=== PATIENT | female | born 1985 | race Caucasian/White ===

== ENCOUNTER 2017-03-22 22:28 | Inpatient (IN) | payer OTHER ==
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
--- NOTE | ~2017-03-22 | DS ---
Unit #: [id number] #: [id number] Patient: ESVIN VOGT [id number] [facility] [address] [place] [address] [id number] I MR#: [id number] NAME: ESVIN VOGT. ROOM: P130 Age: 31 Sex: F Admission Date: 03/23/2017 : 1985 Discharge Date: 03/24/2017 Attending Physician: Luis E Abraham M.D. Primary Care Physician: Adelaide Higgins M.D. DISCHARGE SUMMARY REASON FOR ADMISSION Esvin is a 31-year-old woman, who had recently discharged from [facility] and has been living in [place], [place]. Her boyfriend was sent to custodial and she became increasingly hopeless with a plan to overdose on heroin. She is readmitted for stabilization. DIAGNOSTIC STUDIES Please see hospital chart. HOSPITAL COURSE Esvin was readmitted and placed on the opiate detox protocol and Prozac 20 mg daily for depression. She enrolled in psychotherapy groups and activities but had minimal detox symptomatology. The following day she was able to contract for safety and was release in good condition. DISCHARGE DIAGNOSES Crete I Major depression. Opiate dependence. Crete II No diagnosis. Crete III Hepatitis C. Crete IV Crete V INSTRUCTIONS TO PATIENT The patient will follow up with chemical dependence programming through our adult evening IOP. DISCHARGE MEDICATIONS 1. Prozac 20 mg daily for depression 2. Ortho Tri-Clen daily for control CONDITION AT DISCHARGE Improved. PROGNOSIS Good. DIET AND ACTIVITY Ad ruby. Unit #: [id number] #: [id number] Patient: ESVIN VOGT Dictated by... Ever Stark/kiersten TD: 05/12/2017 05:14 JOB #: [id number] DISCHARGE SUMMARY Page 1 of 1 X Luis E Abraham MD X DISCHARGE SUMMARY
--- NOTE | ~2017-03-22 | HP ---
Unit #: [id number] #: [id number] Patient: ESVIN VOGT [id number] [place] [address] [id number] I MR#: [id number] NAME: ESVIN VOGT. ROOM: P130 Age: 31 Sex: F Admission Date: 03/23/2017 : 1985 Attending Physician: Luis E Abraham M.D. Admitting Physician: Luis E Abraham M.D. Primary Care Physician: Adelaide Higgins M.D. HISTORY AND PHYSICAL HISTORY OF PRESENT ILLNESS Esvin is a 31 year old admitted to [address] [place] [address] because of her continued drug use which includes IV heroin. PAST MEDICAL HISTORY 1. Long history of illicit substance abuse to include IV heroin. 2. Hepatitis C. 3. History of MRSA. PAST SURGICAL HISTORY Nothing reported. ALLERGIES Ceclor, erythromycin. SOCIAL HISTORY She does not smoke. Drinks alcohol frequently. Has a long history of illicit substance abuse to include IV heroin. FAMILY HISTORY Medically noncontributory. REVIEW OF SYSTEMS CONSTITUTIONAL: No fever or chills. HEENT: Denies any sore throat, ear pain or runny nose. CARDIOVASCULAR: Denies chest pain, irregular heart rhythm or palpitations. CHEST: Denies shortness of breath or cough. No hemoptysis. GASTROINTESTINAL: Denies nausea, vomiting, diarrhea or chronic constipation. ENDOCRINE: Denies history of increased thirst or urination. No recent significant weight loss or gain. GENITOURINARY: Denies dysuria, frequency, or hematuria. SKIN: Denies any rashes. HEMATOLOGIC: Denies history of increased bleeding or bruising. MUSCULOSKELETAL: Denies any hot, swollen joints. No generalized muscle pain. NEUROLOGIC: Denies problems with vision or speech. No frequent, severe headaches. No numbness, tingling or weakness in any extremities. Denies loss of bladder or bowel control. CURRENT MEDICATIONS 1. Detox protocol. 2. Prozac 20 mg q. day. Unit #: [id number] #: [id number] Patient: ESVIN VOGT 3. Nicotine patch 14 mg q. day. 4. control pills q. day. PHYSICAL EXAMINATION GENERAL: Alert, well nourished. No apparent distress. VITAL SIGNS: Blood pressure 116/58, heart rate 74, respirations 16, and temperature 98.6. WEIGHT: 159. HEIGHT: 5 feet 7 inches. SKIN: Warm and dry without rash or lesion. HEENT: Normocephalic. TMs not viewed. Oral and nasal passages clear. Conjunctivae clear. PERRLA. EOMs intact. NECK: Supple without lymphadenopathy or thyromegaly. HEART: Regular rate and rhythm without murmur. LUNGS: Clear. ABDOMEN: Soft, nontender. : Not done. EXTREMITIES: No evidence of cyanosis, clubbing or edema. Moves all without focal deficit. NEUROLOGICAL: Grossly within normal limits. Cranial Nerves: II: Visual szymanski are intact. III, IV AND : Extraocular movements are intact. Pupils are equal, round and reactive to light. V: Facial sensation is grossly normal. VII: Facial movements and expression are normal. VIII: Auditory acuity grossly intact. IX, X: Uvula is midline. Phonation is normal. XI: Patient shrugs shoulders and turns head normally. XII: Tongue protrudes in the midline. Sensory and Motor Function: Sensory and motor sensation is grossly normal. Motor: moves all extremities well. Coordination: Gait is normal. Deep Tendon Reflexes: Intact. IMPRESSION Psychiatric admission. RECOMMENDATIONS PSYCHIATRIC: Per psychiatrist. MEDICAL: I see no contraindication to participate in this facility's activities. MEDICAL PROGNOSIS Good. MEDICAL CONDITION Stable. Dictated by... Jayleen Reeves P.A.-C. for Ever Zamudio/elmer TD: 03/24/2017 13:10 JOB #: [id number] Unit #: [id number] #: [id number] Patient: ESVIN VOGT HISTORY AND PHYSICAL Page 1 of 1 X Jayleen Reeves HISTORY AND PHYSICAL
[2017-03-23 13:45] LABS: AMPHETAMINE NEG (NEG); BARBITURATES NEG (NEG); BENZODIAZEPINES NEG (NEG); COCAINE NEG (NEG); MARIJUANA NEG (NEG); OPIATES POS (NEG); TRICYCLIC ANTIDEPRESSANTS NEG (NEG); U METHADONE NEG (NEG)
== END 2017-03-24 12:57 | DRG 885 ==
LOC: P1S 03-23 01:32
PROVIDERS: Psychiatry & Neurology Psychiatry
PROC: HZ2ZZZZ Detoxification Services for Substance Abuse Treatment (ICD-10-PCS; principal; 2017-03-23)
DX: F33.9 Major depressive disorder, recurrent, unspecified (principal); R45.851 Suicidal ideations; F11.20 Opioid dependence, uncomplicated; B19.20 Unspecified viral hepatitis C without hepatic coma
CPT/HCPCS: 80307; 84703

== ENCOUNTER 2017-04-15 20:00 | Inpatient (IN) | payer OTHER ==
--- NOTE | ~2017-04-15 | HP ---
Unit #: [id number] #: [id number] Patient: ESVIN VOGT [id number] [place] [address] [id number] I MR#: [id number] NAME: ESVIN VOGT ROOM: P207 Age: 31 Sex: F Admission Date: 04/16/2017 : 1985 Attending Physician: Luis E Abraham M.D. Admitting Physician: Luis E Abraham M.D. Primary Care Physician: Generic Doctor Not In System HISTORY AND PHYSICAL HISTORY OF PRESENT ILLNESS Esvin is a 31-year-old female, admitted to [address] [place] [address] on 04/16/2017 for IV heroin abuse. She had a recent admission on 03/23/2017 for the same. I have reviewed the history and physical from that admission and there are no changes. Dictated by... Neto Lowe/kiersten TD: 05/10/2017 11:48 JOB #: [id number] HISTORY AND PHYSICAL Page 1 of 1 X JOAQUÍN DAY APRN HISTORY AND PHYSICAL
--- NOTE | ~2017-04-15 | DS ---
Unit #: [id number] #: [id number] Patient: VICKY VOGT [id number] [place] [address] [id number] I MR#: [id number] NAME: VICKY VOGT. ROOM: P207 Age: 31 Sex: F Admission Date: 04/16/2017 : 1985 Discharge Date: 04/17/2017 Attending Physician: Luis E Abraham M.D. Primary Care Physician: Generic Doctor Not In System DISCHARGE SUMMARY REASON FOR ADMISSION Vicky is a 31-year-old woman who has a history of polysubstance dependence, and came in reporting suicidal ideation after a brief relapse on heroin. She was unable to contract for safety and was admitted for stabilization. DIAGNOSTIC STUDIES LABORATORY RESULTS: Urine drug screen was positive for opioids. HOSPITAL COURSE The patient was admitted and placed on suicide precautions and the opioid detox protocol. The following day, the patient stated that her relapse had been brief and she experienced no detox symptomatology. Her mood had improved considerably and she denied any further suicidal ideation, intent, or plan. At this point, she was not eligible for involuntary hospitalization, and stated that she had made it positive on a bed in a sober living facility, that her family was going to transport her to. At this point, she was discharged at her request. DISCHARGE DIAGNOSES AXIS I: Major depression; opioid dependence. AXIS II: No diagnosis. AXIS III: Hepatitis C. AXIS IV: AXIS V: DISCHARGE INSTRUCTIONS Follow up with CD programming of choice. DISCHARGE MEDICATIONS Ortho Tri-Cyclen one tablet daily for hormone regulation. CONDITION AT DISCHARGE Improved. PROGNOSIS Fair to good. DIET AND ACTIVITY Per primary care doctor. Unit #: [id number] #: [id number] Patient: VICKY VOGT Dictated by... Luis E Abraham M.D. [facility]/apple TD: 04/17/2017 11:04 JOB #: [id number] DISCHARGE SUMMARY Page 1 of 1 X Luis E Abraham MD X DISCHARGE SUMMARY
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
[2017-04-17 09:37] LABS: BASOPHIL# 0.1 X10e3 (0-0.3); BASOPHIL% 0.8 % (0-2.5); EOSINOPHIL# 0.5 X10e3 (0-0.7); EOSINOPHIL% 6.6 % (0.0-7.0); HEMATOCRIT 38.8 % (35.0-45.0); HEMOGLOBIN 12.7 gm/dL (12.0-16.0); LYMPHOCYTE# 2.4 X10e3 (1.0-3.5); MEAN CELL VOLUME 89.6 FL (83-96); MEAN CORPUSCULAR HEMOGLOBIN 29.2 PG (28-34); MEAN CORPUSCULAR HGB CONC 32.6 g/dL (30-36); MEAN PLATELET VOLUME 8.7 FL (6.5-11.5); MONOCYTE# 0.6 X10e3 (0-1.0); NEUTROPHIL# 3.9 X10e3 (1.5-7.1); NEUTROPHIL% 52.6 % (40-75); PLATELET COUNT 276 X10e3 (140-420); RED BLOOD COUNT 4.33 X10e (3.90-5.30); RED CELL DISTRIBUTION WIDTH 13.6 % (11.0-15.5); WHITE BLOOD COUNT 7.4 X10e3 (4.0-10.5)
[2017-04-17 09:44] LABS: URINE APPEARANCE CLEAR; URINE BILIRUBIN NEG (NEG); URINE BLOOD NEG (NEG); URINE COLOR YELLOW; URINE GLUCOSE NEG (NEG); URINE KETONE NEG (NEG); URINE LEUKOCYTE ESTERASE NEG (NEG); URINE NITRATE NEG (NEG); URINE PH 7.5 (5-8); URINE PROTEIN NEG (NEG); URINE SPECIFIC GRAVITY 1.012 (1.003-1.035); URINE UROBILINOGEN 0.2 MG/DL (NEG)
[2017-04-17 09:52] LABS: ALBUMIN SERUM 3.6 g/dL (3.5-5.0); BILIRUBIN,TOTAL 0.2 mg/dL (0.2-2.0); CALCIUM SERUM 9.1 mg/dL (8.4-10.2); CREATININE SERUM 0.5 mg/dL (0.6-1.4); GLOM FILT RATE Estimated 130.8 mL/min (>60); POTASSIUM 4.5 mmol/L (3.5-5.1); PROTEIN TOTAL SERUM 6.7 g/dL (6.0-8.3)
[2017-04-17 09:54] LABS: DIFF IND NO
[2017-04-17 10:04] LABS: AMPHETAMINE NEG (NEG); BARBITURATES NEG (NEG); BENZODIAZEPINES NEG (NEG); COCAINE NEG (NEG); MARIJUANA NEG (NEG); OPIATES POS (NEG); TRICYCLIC ANTIDEPRESSANTS NEG (NEG); U METHADONE NEG (NEG)
== END 2017-04-17 10:00 | disposition home or self-care (01) | DRG 885 ==
LOC: P2S 04-16 11:34
PROVIDERS: Psychiatry & Neurology Psychiatry
PROC: HZ2ZZZZ Detoxification Services for Substance Abuse Treatment (ICD-10-PCS; principal; 2017-04-16)
DX: F33.2 Major depressive disorder, recurrent severe without psychotic features (principal); R45.851 Suicidal ideations; F11.23 Opioid dependence with withdrawal; B19.20 Unspecified viral hepatitis C without hepatic coma
CPT/HCPCS: 80053; 80307; 81003; 85025; 86592